=== PATIENT | male | born 1950 | race Caucasian/White ===

== ENCOUNTER 2018-03-17 07:34 | Day surgery (SDC) | payer MEDICARE, BC ==
--- NOTE | 2018-03-04 12:46 | HP ---
PREOPERATIVE HISTORY AND PHYSICAL: DATE OF ADMISSION/SURGERY: 03/17/18 - [facility] DATE OF OFFICE VISIT/ENCOUNTER: 02/23/18 ATTENDING SURGEON: Luli Cesar MD * (DICTATED BY JEAN-PIERRE MILLER) PROCEDURE: Excision mass, left hand. CHIEF COMPLAINT: Mass, left hand with associated numbness and tingling. HISTORY OF PRESENT ILLNESS: This is a 68-year-old male, he complains of a mass that has been present in the palm of his left hand for several years. Over the past few months, he has started noticing numbness and tingling primarily in the left middle and ring fingers. It does seem to be getting a bit progressively worse. It is always there to a certain extent but will vary with intensity. He denies any injury to the hand. He reports that sometimes his ring finger is numb enough that he is missing the mcmahon on his computer. He does not particularly complain of much pain. It is more the numbness and tingling that is bothersome. He denies any numbness and tingling in the left pinky and does not think that he has any thumb or any index finger tingling as well. 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 He has consented to proceed with surgical intervention at this time for excision of the mass from his left hand. PAST MEDICAL HISTORY: 1. Hypertension. 2. Cholesterol. 3. Diverticulitis. 4. Arthritis. PAST SURGICAL HISTORY: 1. Varicose vein surgery. 2. Dental implant. 3. Hernia repair. 4. Skin lesion excised from chest. MEDICATIONS: 1. Aspirin 81 mg daily. 2. Cialis 5 mg daily. 3. Ipratropium bromide 0.03% spray, 2 sprays each nostril 2 times daily p.r.n. 4. Losartan potassium/hydrochlorothiazide mg daily. 5. Lovastatin 20 mg 1 tab at bedtime. 6. Lovastatin 40 mg 1 tab at bedtime. ALLERGIES: PENICILLIN causes throat swelling. FAMILY HISTORY: Family medical history is noncontributory. 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 He denies tobacco use and recreational drug use. He does drink alcohol on regular occasion, approximately 4 to 5 times a week. REVIEW OF SYSTEMS: General: Negative for fevers, chills, night sweats, unexplained weight loss/gain. No known anesthesia problems. HEENT: Negative for headache, lightheadedness, syncopal episodes, visual changes. Integumentary : Negative for abrasions, lesions, open wounds. Cardiothoracic: Negative for hypertension, chest pain, palpitations, edema. Respiratory: Negative for shortness of breath with exertion, chronic cough, wheezing. GI: Negative for nausea, vomiting, diarrhea, constipation, GERD. : Negative for nocturia, urinary frequency, urgency, history of UTIs, kidney problems. Musculoskeletal: Positive for current complaint. Negative for chronic or intermittent back pain or history of fractures. Neurologic: Positive for numbness and tingling in left hand fingers. Negative for history of seizure, stroke, poor balance. Endocrine: Negative for diabetes and thyroid issues. Hematologic: Negative for easy bruising, anemia, bleeding disorders, history of DVT. Infectious Disease: Negative for history of MRSA, hepatitis C, HIV. PHYSICAL EXAMINATION GENERAL: Well-developed, well-nourished, 68-year-old male in no acute distress. VITAL SIGNS: Height 5 feet 9 inches, weight 208 pounds, pulse rate 73, blood pressure 136/82. HEENT: Normocephalic, atraumatic. Pupils equal, round, and reactive to light and accommodation. Extraocular movements are intact. NECK: Supple. No palpable lymph nodes. Throat is clear. PULMONARY: Lungs are clear to auscultation bilaterally. No wheezes, rales, or rhonchi. CARDIOVASCULAR: Regular rate and rhythm. S1, S2. No murmurs, rubs, or gallops. No edema. ABDOMEN: Positive bowel sounds, soft, nontender. NEUROLOGIC: Alert and oriented x3. Cranial nerves II through XII are intact. Sensation is intact to light touch. MUSCULOSKELETAL: On exam of his left hand, there is a visible moderate size mass in the palm of his hand in line with the ring and middle fingers. It is soft and mildly tender with pressure. Pressure causes numbness and tingling to increase in the ring and middle fingers. There is no erythema. Skin is intact. There is also evidence of Dupuytren's puckering just distal to the mass in line with the ring finger that is nontender as well. The patient has full range of motion of his fingers and good strength in his flexor tendons and wrist flexion. He has a positive median nerve compression test. Sensation is intact throughout the hand. IMAGING STUDIES: X-rays of the left hand are unremarkable for any osseous abnormalities. MRI of the left hand shows a large mass in the hand, most consistent with a nerve sheath tumor. 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 PLAN: The patient is scheduled to undergo an excision mass, left hand, with Dr. Cesar on 03/17/18. He will return to the office 10 days postop for followup and suture removal. A prescription for Ultracet was e-scribed to the patient's pharmacy for postoperative pain management. JEAN-PIERRE MILLER [id number]/[facility] #: [id number] MTDBuddy
[~2018-03-17 07:34] MED LIST: Buffered Lidocaine 0.9% SYRIN* 5 ML/SYR SYRINGE INTRADERM ONE; Famotidine IV* 10 MG/ML 2 ML (20 mg) IV ONE
[2018-03-17] MEDS ORDERED: Famotidine IV* 10 MG/ML 2 ML (20 mg) ONE (08:18)
[2018-03-17] MEDS ORDERED: Midazolam* 1 MG/ML 5 ML VIAL (5 MG) ONE (08:40)
[2018-03-17] MEDS ORDERED: Lidocaine 1% INJ* 10 MG/ML 30 ML SDV ONE (08:40)
[2018-03-17] MEDS ORDERED: fentaNYL* 50 MCG/ML 2 ML VIAL (100 MCG VIAL) ONE (08:40)
[2018-03-17] MEDS ORDERED: HYDROmorphone INJ* 0.5 MG/0.5 ML SYRINGE IV PRN (09:10)
[2018-03-17] MEDS ORDERED: Acetaminophen TAB* 325 MG PO PRN (09:10)
[2018-03-17] MEDS ORDERED: DiMENhydriNATE IV* 50 MG/ML VIAL IV PUSH PRN (09:10)
[2018-03-17] MEDS ORDERED: oxyCODONE TAB* 5 MG TAB PO PRN (09:10)
[2018-03-17] MEDS ORDERED: Naloxone* 0.4 MG/ML 1 ML VIAL IV PRN (09:10)
[2018-03-17] MEDS ORDERED: Dexamethasone IV* 4 MG/ML 1 ML (4 MG) ONE (09:41)
[2018-03-17] MEDS ORDERED: Propofol* 10 MG/ML 20 ML BTL IV PUSH ONE (09:41)
[2018-03-17] MEDS ORDERED: Lidocaine 2% PF * 5 ML VIAL ONE (09:41)
[2018-03-17] MEDS ORDERED: Ondansetron INJ* 2 MG/ML VIAL ONE (09:41)
[2018-03-17] MEDS ORDERED: Ketorolac INJ* 30 MG/ML 1 ML VIAL ONE (09:41)
[2018-03-17 10:54] VITALS: BP 124/77
--- NOTE | 2018-03-17 22:28 | OP ---
CC: Dr. Cesar OPERATIVE REPORT: DATE OF OPERATION: 03/17/18. DATE OF : 46. SURGEON: Luli Cesar M.D. MOWER OPERATOR: JEAN-PIERRE Marin ANESTHESIA: General. PRE-OP DIAGNOSIS: Left hand mass. POST-OP DIAGNOSIS: Left hand mass. OPERATIVE PROCEDURE: Removal of mass from the left hand. ESTIMATED BLOOD LOSS: Zero. TOURNIQUET TIME: About 25 minutes. INDICATIONS FOR PROCEDURE: Jayson is a 68-year-old man with an enlarging mass in the palm of his lef t hand. He has symptoms of tingling and numbness in his median nerve distribution. MRI shows a well -circumscribed mass with a mass effect on the flexor tendons and the median nerve. He presents for r emoval of the mass. DESCRIPTION OF PROCEDURE: The patient was brought to the operating room, was given a general anesthe tic and placed in the supine position on the operating table with a tourniquet around his left forear m. The skin of his left hand and forearm was prepped and draped in the usual sterile fashion. The h and and forearm were exsanguinated and the tourniquet elevated to 250 mmHg. A Chevron incision was m bebe centered over the mass in the mid aspect of the palm and the skin edges were carefully dissected up over the mass. It was a large 5x3 cm mass with mass effect on the median nerve. It was carefully dissected out from the median nerve fibers, but very well circumscribed and not at all invasive. It was sent for pathology. The wound was irrigated and the skin edges were reapproximated with 4-0 nylo n suture. The wound was dressed with Xeroform, 4x4s, Webril, and an KEN wrap. The patient tolerated the procedure well, and was brought to the recovery room in good condition. [id number]/[facility] #: [id number]
== END 2018-03-17 11:00 | disposition home or self-care (01) ==
LOC: OREAST 07:34
PROVIDERS: ATTEND Orthopaedic Surgery
DX: D18.01 Hemangioma of skin and subcutaneous tissue (principal); R20.0 Anesthesia of skin; I10 Essential (primary) hypertension; E78.00 Pure hypercholesterolemia, unspecified; M19.90 Unspecified osteoarthritis, unspecified site; J30.2 Other seasonal allergic rhinitis
CPT/HCPCS: 88304; J1100; J1885; J2250; J2405; J2704; J3010